=== PATIENT | male | born 1950 | race Asian ===

== ENCOUNTER 2017-01-23 07:45 | Emergency (ER) | payer OTHER ==
[~2017-01-23] VITALS: Ht 172.7 cm; Wt 91.9 kg
[~2017-01-23 07:45] MED LIST: ADV25050 INH; ALBU8.5H3 INH; ALLO100T PO; AMLO-218 PO; ASPI81TA3 PO; CARV3.12 PO; GLIP5TAB13 PO; HYDR25CA PO; TERA2CAP3 PO; ZOC10 PO
[2017-01-23 07:49] VITALS: Ht 172.7 cm; Wt 91.9 kg
--- NOTE | 2017-01-23 09:11 | RADRPT ---
PROCEDURE: XR Chest. CLINICAL INDICATION: Pain status post injury TECHNIQUE: AP Portable chest. COMPARISON: 05/31/2014 chest x-ray FINDINGS: The soft tissues and bones are remarkable for bilateral acromioclavicular osteoarthropathy. No foca l infiltrates, masses, or effusions are noted. The mediastinum and heart are remarkable for mild va scular calcifications of the thoracic aorta and mild cardiomegaly.. No pneumothorax is present. IMPRESSION: 1. No radiographic evidence for acute cardiopulmonary disease 2. Mild cardiomegaly and atherosclerotic vascular disease RPTAT: HDC .Nu Salazar MD, MD Date Time Electronically viewed and signed by .Nu Salazar MD, on 01/23/2017 09:11 .C/
--- NOTE | 2017-01-23 09:11 | RADRPT ---
PROCEDURE: Xray right ribs. CLINICAL INDICATION: Trauma due to a fall. Right rib pain. TECHNIQUE: 4 views of the right ribs. COMPARISON: None available. FINDINGS: The osseous structures and surrounding soft tissues of the right rib cage are intact. No acute frac ture is seen. Surgical clips are present in the right upper quadrant of the abdomen. There is calci fication in the aorta consistent with atherosclerosis.. IMPRESSION: 1. Prior right upper quadrant abdomen surgery. 2. Atherosclerosis. 3. Otherwise unremarkable right ribs x-ray series. RPTAT: QQ .Erick Márquez MD, MD Date Time Electronically viewed and signed by .Erick Márquez MD, on 01/23/2017 09:11 .R/
[2017-01-23] MEDS ORDERED: HYDR-906 PO (09:31)
--- NOTE | 2017-01-23 11:35 | ERD ---
ER Documentation Chief Complaint Chief Complaint right arm pain and right chest hematoma s/p fall from 5ft ladder 3 days ago HPI 66-year-old male complaining of right-sided chest pain and right arm pain after he fell off a ladder 3 days ago. Patient was putting up [employer] lights and tripped on a rung of the ladder and fell. He denies any troubles breathing. He took tramadol with no relief of symptoms. Denies any pleuritic chest pain. Has a large amount of bruising. States he is taking aspirin but no other blood thinners. Denies any head injury or loss of consciousness. Denies other medical problems per ROS All systems reviewed and are negative except as per history of present illness. Medications Home Meds Active Scripts Hydrocodone/Acetaminophen ([place] 5-325 Tablet) 1 Each Tablet, 1 TAB PO Q6H Y for PAIN, #7 TAB Prov:GEORGES OLIVERA PA-C 01/23/17 Simvastatin (Simvastatin) 10 Mg Tablet, 10 MG PO HS, #30 TAB Prov:SHERRI URRUTIA MD 06/01/14 Albuterol Sulfate* (Proair HFA*) 8.5 Gm Hfa.aer.ad, 2 PUFF INH Q6H Y for WHEEZING AND SOB, #1 INH Prov:SHERRI URRUTIA MD 06/01/14 Carvedilol* (Coreg*) 3.125 Mg Tab, 6.25 MG PO BID, #60 TAB Prov:SHERRI URRUTIA MD 06/01/14 Reported Medications Hydroxyzine Pamoate* (Vistaril*) 25 Mg Capsule, 75 MG PO DAILY, CAP 05/31/14 Salmeterol Xinaf/Fluticasone* (Advair*) 250-50 Diskus Inhaler, 1 PUFF INH BID, INH 05/31/14 Terazosin Hcl* (Terazosin Hcl*) 2 Mg Capsule, 2 MG PO EVERY OTHER DAY, CAP 05/31/14 Allopurinol* (Allopurinol*) 100 Mg Tablet, 100 MG PO DAILY, TAB 05/31/14 Glipizide* (Glipizide*) 5 Mg Tablet, 5 MG PO DAILY, TAB 05/31/14 Aspirin* (Aspirin* Chew) 81 Mg Tab.chew, 81 MG PO DAILY, TAB.CHEW 05/31/14 Amlodipine Besylate* (Norvasc*) 10 Mg Tablet, 10 MG PO DAILY, TAB 05/31/14 Allergies Allergies: Coded Allergies: No Known Allergy (Unverified , 05/31/14) PMhx/Soc History of Surgery: Yes (LUMBAR COMPRESSION,LAP ISABELLE) Anesthesia Reaction: No Hx Neurological Disorder: No Hx Respiratory Disorders: Yes (ASTHMA) Hx Cardiac Disorders: Yes (HTN) Hx Psychiatric Problems: No Hx Miscellaneous Medical Probl: No Hx Alcohol Use: No Hx Substance Use: No Hx Tobacco Use: No Physical Exam Vitals Vital Signs Date Time Temp Pulse Resp B/P Pulse Ox O2 Delivery O2 Flow Rate FiO2 01/23/17 07:49 97.7 97 18 176/92 97 Physical Exam GENERAL: The patient is well-appearing, well-nourished, in no acute distress CHEST: Clear to auscultation bilaterally. There are no rales, wheezes or rhonchi. No crepitus heard on exam. No subcutaneous emphysema. HEART: Regular rate and rhythm. No murmurs, clicks, rubs or gallops. No S3 or S4. ABDOMEN:Soft, nontender and nondistended. Good bowel sounds. No rebound or guarding. No gross peritonitis. No gross organomegaly or masses. No Thomas sign or McBurney point tenderness. BACK: No midline or flank tenderness. No midline tenderness and no bony step- offs. EXTREMITIES: Equal pulses bilaterally. There is no peripheral clubbing, cyanosis or edema. No focal swelling or erythema. Full range of motion. Grossly neurovascularly intact. NEUROLOGIC: Alert and oriented. Cranial nerves II through XII intact. Motor strength in all 4 extremities with 5 out of 5 strength. Sensation grossly intact. Normal speech and gait. SKIN: Ecchymosis to left chest wall no lacerations or abrasions. Ecchymosis noted to right axilla. HEMATOLOGIC AND LYMPHATIC: There is no evidence of excessive bruising or lymphadenopathy. No gross cervical, axillary, or inguinal lymphadenopathy. Procedures/MDM DIAGNOSTIC IMAGING REPORT Patient: JADEN WRIGHT : 1950 Age: 66 Sex: M MR #: [id number] DOS: 01/23/17 0813 Ordering MD: ZEINAB OLIVERA PA-C Location: [facility] Room/Bed: PROCEDURE: XR Chest. CLINICAL INDICATION: Pain status post injury TECHNIQUE: AP Portable chest. COMPARISON: 05/31/2014 chest x-ray FINDINGS: The soft tissues and bones are remarkable for bilateral acromioclavicular osteoarthropathy. No focal infiltrates, masses, or effusions are noted. The mediastinum and heart are remarkable for mild vascular calcifications of the thoracic aorta and mild cardiomegaly.. No pneumothorax is present. IMPRESSION: 1. No radiographic evidence for acute cardiopulmonary disease 2. Mild cardiomegaly and atherosclerotic vascular disease DIAGNOSTIC IMAGING REPORT Patient: JADEN WRIGHT : 1950 Age: 66 Sex: M MR #: [id number] DOS: 01/23/17 08 Ordering MD: ZEINAB OLIVERA PA-C Location: [facility] Room/Bed: PROCEDURE: Xray right ribs. CLINICAL INDICATION: Trauma due to a fall. Right rib pain. TECHNIQUE: 4 views of the right ribs. COMPARISON: None available. FINDINGS: The osseous structures and surrounding soft tissues of the right rib cage are intact. No acute fracture is seen. Surgical clips are present in the right upper quadrant of the abdomen. There is calcification in the aorta consistent with atherosclerosis.. IMPRESSION: 1. Prior right upper quadrant abdomen surgery. 2. Atherosclerosis. 3. Otherwise unremarkable right ribs x-ray series. MDM: 6-year-old male complaining of tenderness to palpation over the right breast. Patient's x-rays within normal limits I have low suspicion for rib fracture. I will suspicion for pulmonary contusion are not pneumothorax. Patient's breath sounds are within normal limits with a oxygen saturation of 97 % on room air. Patient does not have crepitus felt on exam or subcutaneous emphysema. Patient likely sustained rib contusion. I have low suspicion for other fracture dislocation. Patient's neuro exam and extremity exams are within normal limits. Patient did not sustain head injuries I have low suspicion for intracranial hemorrhage. Patient's neuro exam is within normal limits and patient is responding appropriately. Patient is discharged with pain medication and recommended to follow-up with primary care within 1-2 days for close evaluation. Patient is told if symptoms change or worsen to return to the room immediately. All questions answered at discharge. Departure Diagnosis: Primary Impression: Hematoma Additional Impression: Fall Condition: Stable Patient Instructions: Fall, Mechanical, Hematoma Referrals: JENNIFER SANDERS MD Additional Instructions: FOLLOW UP WITH YOUR PRIMARY CARE PHYSICIAN TOMORROW.Return to this facility if you are not improving as expected. GEORGES OLIVERA PA-C Jan 23, 2017 11:35
== END 2017-01-23 09:56 | disposition home or self-care (01) ==
LOC: FTE 07:45
DX: S20.211A Contusion of right front wall of thorax, initial encounter (principal); J45.909 Unspecified asthma, uncomplicated; I10 Essential (primary) hypertension; W11.XXXA Fall on and from ladder, initial encounter; Y92.9 Unspecified place or not applicable; Z79.82 Long term (current) use of aspirin; Z79.84 Long term (current) use of oral hypoglycemic drugs
CPT/HCPCS: 71010; 71100; Z7502

== ENCOUNTER 2018-09-27 22:15 | Emergency (ER) | payer MEDICARE, OTHER ==
[~2018-09-27] VITALS: Ht 170.2 cm; Wt 94.0 kg
[~2018-09-27 22:15] MED LIST changes: -ALBU8.5H3 INH; +ALBU8.5H8 INH; +ASPI-903 PO; -ASPI81TA3 PO; +HYDR-4011 PO; +PRED20TA PO
[2018-09-27 22:19] VITALS: Ht 170.2 cm; Wt 94.0 kg
[2018-09-28] MEDS ORDERED: ALBUTEROL 0.5% (NEB) 2.5 MG/0.5 ML AMP INH STA (00:39)
[2018-09-28] MEDS ORDERED: METHYLPREDNISOLONE 125 MG INJ IV STA (00:39)
[2018-09-28] MEDS ORDERED: IPRATROPIUM (NEB) 0.5 MG/2.5 ML AMP INH STA (00:39)
--- NOTE | 2018-09-28 02:00 | ERD ---
ER Documentation Chief Complaint Chief Complaint SOB X 1 WEEK SLOWLY GETTING WORSE HX ASTHMA HPI This is a 68-year-old male with a history of hypertension, COPD, CHF, asthma who presents to the ER for evaluation of shortness of breath. The patient states that he is been feeling short of breath for 1 week and he states that when he walks and makes his shortness of breath worse. He has been using albuterol, and Spiriva without relief and came to the ER for evaluation. Patient currently denies any chest pain, he denies any heart palpitations and denies any headaches or fevers associated with his shortness of breath. ROS All systems reviewed and are negative except as per history of present illness. Medications Home Meds Active Scripts Hydrocodone/Acetaminophen ([place] 5-325 Tablet) 1 Each Tablet, 1 TAB PO Q6H PRN for PAIN, #7 TAB Prov:GEORGES OLIVERA PA-C 01/23/17 Simvastatin (Simvastatin) 10 Mg Tablet, 10 MG PO HS, #30 TAB Prov:SHERRI URRUTIA MD 06/01/14 Albuterol Sulfate* (Proair HFA*) 8.5 Gm Hfa.aer.ad, 2 PUFF INH Q6H PRN for WHEEZING AND SOB, #1 INH Prov:SHERRI URRUTIA MD 06/01/14 Carvedilol* (Coreg*) 3.125 Mg Tab, 6.25 MG PO BID, #60 TAB Prov:SHERRI URRUTIA MD 06/01/14 Reported Medications Hydroxyzine Pamoate* (Vistaril*) 25 Mg Capsule, 75 MG PO DAILY, CAP 05/31/14 Salmeterol Xinaf/Fluticasone* (Advair*) 250-50 Diskus Inhaler, 1 PUFF INH BID, INH 05/31/14 Terazosin Hcl* (Terazosin Hcl*) 2 Mg Capsule, 2 MG PO EVERY OTHER DAY, CAP 05/31/14 Allopurinol* (Allopurinol*) 100 Mg Tablet, 100 MG PO DAILY, TAB 05/31/14 Glipizide* (Glipizide*) 5 Mg Tablet, 5 MG PO DAILY, TAB 05/31/14 Aspirin* (Aspirin* Chew) 81 Mg Tab.chew, 81 MG PO DAILY, TAB.CHEW 05/31/14 Amlodipine Besylate* (Norvasc*) 10 Mg Tablet, 10 MG PO DAILY, TAB 05/31/14 Allergies Allergies: Coded Allergies: No Known Allergy (Unverified , 05/31/14) PMhx/Soc History of Surgery: Yes (LUMBAR COMPRESSION,LAP ISABELLE) Anesthesia Reaction: No Hx Neurological Disorder: No Hx Respiratory Disorders: Yes (ASTHMA) Hx Cardiac Disorders: Yes (HTN, HYPERLIPIDEMIA) Hx Psychiatric Problems: No Hx Miscellaneous Medical Probl: No (CVA, DM) Hx Alcohol Use: No Hx Substance Use: No Hx Tobacco Use: No Smoking Status: Never smoker Physical Exam Vitals Vital Signs Date Temp Pulse Resp B/P (MAP) Pulse Ox O2 O2 Flow FiO2 Time Delivery Rate 09/28/18 75 18 147/84 100 Room Air 01:07 (105) 09/28/18 81 22 93 21 00:52 09/27/18 97.8 76 20 164/79 95 22:19 (107) Physical Exam INITIAL VITAL SIGNS: Reviewed by me GENERAL: The patient is well developed and appropriate for usual state of health in no apparent distress HEENT: Pupils equal, round, and reactive to light. EOMI. There is no scleral icterus. NECK: C-spine is soft and supple, there is no meningismus. There is no cervical lymphadenopathy. LUNGS: Diminished breath sounds bilaterally with expiratory wheezing HEART: Regular rate and rhythm, no murmurs, clicks, rubs or gallops. ABDOMEN: Soft, non-tender, non-distended. There are bowel sounds in all four quadrants. No rebound or guarding. EXTREMITIES: There is no peripheral cyanosis or edema. No focal swelling or erythema. NEUROLOGICAL: The patient moves all four extremities with 5/5 strength. Cranial nerves II - XII are intact. Normal gait. Alert and oriented SKIN: There is no apparent rash or petechiae. HEME/LYMPHATIC: There is no evidence of excessive bruising or lymphedema. PSYCHIATRIC: The patient does not appear anxious or depressed. Result Diagram: 09/28/1810209/28/18102 Results 24 hrs Laboratory Tests Test 09/28/18 01:03 White Blood Count 11.6 10^3/ul Red Blood Count 4.93 10^6/ul Hemoglobin 14.8 g/dl Hematocrit 44.1 % Mean Corpuscular Volume 89.5 fl Mean Corpuscular Hemoglobin 30.0 pg Mean Corpuscular Hemoglobin Concent 33.6 g/dl Red Cell Distribution Width 14.2 % Platelet Count 239 10^3/UL Mean Platelet Volume 8.7 fl Immature Granulocytes % 0.300 % Neutrophils % 59.3 % Lymphocytes % 24.3 % Monocytes % 5.4 % Eosinophils % 10.1 % Basophils % 0.6 % Nucleated Red Blood Cells % 0.0 /100WBC Immature Granulocytes # 0.040 10^3/ul Neutrophils # 6.9 10^3/ul Lymphocytes # 2.8 10^3/ul Monocytes # 0.6 10^3/ul Eosinophils # 1.2 10^3/ul Basophils # 0.1 10^3/ul Nucleated Red Blood Cells # 0.0 10^3/ul Sodium Level 142 mmol/L Potassium Level 4.0 mmol/L Chloride Level 104 mmol/L Carbon Dioxide Level 27 mmol/L Anion Gap 11 Blood Urea Nitrogen 25 mg/dl Creatinine 1.73 mg/dl Est Glomerular Filtrat Rate mL/min 39 mL/min Glucose Level 188 mg/dl Calcium Level 9.2 mg/dl Total Bilirubin 0.6 mg/dl Direct Bilirubin 0.00 mg/dl Indirect Bilirubin 0.6 mg/dl Aspartate Amino Transf (AST/SGOT) 32 IU/L Alanine Aminotransferase (ALT/SGPT) 39 IU/L Alkaline Phosphatase 108 IU/L Troponin I < 0.012 ng/ml B-Type Natriuretic Peptide 54 PG/ML Total Protein 8.3 g/dl Albumin 4.6 g/dl Globulin 3.70 g/dl Albumin/Globulin Ratio 1.24 Current Medications Medications Dose Sig/Alex Start Time Status Last (Trade) Ordered Route PRN Stop Time Admin Dose Reason Admin Albuterol 10 mg ONCE STAT 09/28/18 DC 09/28/18 (Proventil INH 00:39 09/28/18 00:52 0.5% (Neb)) 00:41 Ipratropium 1 mg ONCE STAT 09/28/18 DC 09/28/18 [place] INH 00:39 09/28/18 00:52 (Atrovent 00:41 0.02% (Neb)) 125 mg ONCE STAT 09/28/18 DC 09/28/18 Methylprednis IV 00:39 09/28/18 01:17 olone Sodium 00:41 Succinate (Solu-Medrol) Procedures/MDM Chest X-ray 1V Interpreted by me: Soft Tissue: No acute abnormalities Bones: No acute abnormalities Mediastinum/Cardiac Silhouette/Lungs: Cardiomegaly This 68-year-old male presents to the ER for evaluation of shortness of breath. On my exam the patient is in no respiratory distress however he did have diminished breath sounds with wheezing. The patient was given continuous breathing treatment, he was given IV Solu-Medrol. Lab work was obtained and shows no emergent abnormalities. Chest x-ray shows no signs of pneumonia. On my reevaluation the patient states he is feeling much better. His oxygen saturation is 100% on room air at this time and he is in no acute distress. He will benefit from outpatient short steroid burst and will be discharged home with a prescription for prednisone. Departure Diagnosis: Primary Impression: Shortness of breath Additional Impressions: Acute asthma exacerbation Renal insufficiency Condition: QUIN Batres DO Sep 28, 2018 01:59
[2018-09-28 02:14] VITALS: BP 145/79; PULSE 65; RESP 18
== END 2018-09-28 02:30 | disposition home or self-care (01) ==
LOC: E/R 22:15
DX: J45.901 Unspecified asthma with (acute) exacerbation (principal); I50.9 Heart failure, unspecified; I11.0 Hypertensive heart disease with heart failure; E11.9 Type 2 diabetes mellitus without complications; N28.9 Disorder of kidney and ureter, unspecified; Z79.82 Long term (current) use of aspirin; Z79.84 Long term (current) use of oral hypoglycemic drugs; Z86.73 Personal history of transient ischemic attack (TIA), and cerebral infarction without residual deficits
CPT/HCPCS: 71045; 80053; 83880; 84484; 85025; 94644; J2930; 96374